=== PATIENT | female | born 1955 | race Caucasian/White ===

== ENCOUNTER 2017-09-04 16:01 | Emergency (ER) | payer OTHER ==
[~2017-09-04 16:01] MED LIST: AMLO5TAB96 PO; CYCL-36 PO
[2017-09-04] MEDS ORDERED: AMLO5TAB2 PO (16:11)
[2017-09-04 16:12] VITALS: BP 147/94; PULSE 66; RESP 18; TEMP 98.1; O2SAT 100
--- NOTE | 2017-09-04 16:28 | PD ---
HPI Chief Complaint: Chest Pain Time Seen by Provider: 16:07 Travel History International Travel<30 days: No Contact w/Intl Traveler<30days: No Traveled to known affect area: No History of Present Illness HPI 62yo F with PMH of HTN here with c/o left sided chest pain for 3 weeks. Pain is sharp, near the left shoulder and constant. No exacerbating or alleviating factor. Denies any sob, nausea, diaphoresis, vomiting, abdominal pain, focal weakness or numbness. Pt denies cig smoking. Denies any family history of sudden cardiac . PFSH Past Medical History Diminished Hearing: No Hypertension: Yes Immunizations Current: Yes Influenza Vaccination: No ?: Not Past Surgical History Section: Yes (X 2) Gynecologic Surgery: Yes (ENDOMETRIAL ABLATION) Social History Alcohol Use: Yes (DAILY) Tobacco Use: No Substance Use: No Allergies-Medications (Allergen,Severity, Reaction): Coded Allergies: amoxicillin (Verified Allergy, Severe, NAUSEA, 09/04/17) albuterol (Verified Allergy, Intermediate, Lethargy, 09/04/17) pt complains of lethergy and nausea Reported Meds & Prescriptions Reported Meds & Active Scripts Active Reported Amlodipine (Amlodipine Besylate) 5 Mg Tab 5 Mg PO HS Review of Systems Except as stated in HPI: all other systems reviewed are Neg Physical Exam Narrative GENERAL: 62yo F not in distress. SKIN: Focused skin assessment warm/dry. HEAD: Atraumatic. Normocephalic. EYES: Pupils equal and round. No scleral icterus. No injection or drainage. ENT: No nasal bleeding or discharge. Mucous membranes pink and moist. NECK: Trachea midline. No JVD. CARDIOVASCULAR: Regular rate and rhythm. No murmur appreciated. RESPIRATORY: No accessory muscle use. Clear to auscultation. Breath sounds equal bilaterally. GASTROINTESTINAL: Abdomen soft, non-tender, nondistended. MUSCULOSKELETAL: No obvious deformities. No clubbing. No cyanosis. No edema. NEUROLOGICAL: Awake and alert. No obvious cranial nerve deficits. Motor grossly within normal limits. Normal speech. PSYCHIATRIC: Appropriate mood and affect; insight and judgment normal. Data Data Last Documented VS Vital Signs Date Time Temp Pulse Resp B/P (MAP) Pulse Ox O2 Delivery O2 Flow Rate FiO2 09/04/17 16:12 98.1 66 18 147/94 (111) 100 Orders Orders Basic Metabolic Panel (Bmp) (6/12/18 16:15) Complete Blood Count With Diff (09/04/17 16:15) Magnesium (Mg) (09/04/17 16:15) Prothrombin Time / Inr (Pt) (09/04/17 16:15) Act Partial Throm Time (Ptt) (09/04/17 16:15) Troponin I (09/04/17 16:15) Chest, Single Ap (09/04/17 16:15) Ibuprofen (Motrin) (09/04/17 16:30) D-Dimer (09/04/17 16:23) Labs Laboratory Tests Test 09/04/17 16:23 White Blood Count 6.0 TH/MM3 Red Blood Count 4.48 MIL/MM3 Hemoglobin 13.6 GM/DL Hematocrit 40.9 % Mean Corpuscular Volume 91.3 FL Mean Corpuscular Hemoglobin 30.3 PG Mean Corpuscular Hemoglobin Concent 33.2 % Red Cell Distribution Width 12.7 % Platelet Count 294 TH/MM3 Mean Platelet Volume 7.4 FL Neutrophils (%) (Auto) 52.0 % Lymphocytes (%) (Auto) 34.9 % Monocytes (%) (Auto) 8.6 % Eosinophils (%) (Auto) 3.8 % Basophils (%) (Auto) 0.7 % Neutrophils # (Auto) 3.2 TH/MM3 Lymphocytes # (Auto) 2.1 TH/MM3 Monocytes # (Auto) 0.5 TH/MM3 Eosinophils # (Auto) 0.2 TH/MM3 Basophils # (Auto) 0.0 TH/MM3 CBC Comment DIFF FINAL Differential Comment Prothrombin Time 10.1 SEC Prothromb Time International Ratio 1.0 RATIO Activated Partial Thromboplast Time 28.3 SEC D-Dimer Quantitative (PE/DVT) 0.23 MG/L FEU Blood Urea Nitrogen 19 MG/DL Creatinine 0.93 MG/DL Random Glucose 84 MG/DL Calcium Level 8.7 MG/DL Magnesium Level 2.3 MG/DL Sodium Level 138 MEQ/L Potassium Level 3.6 MEQ/L Chloride Level 105 MEQ/L Carbon Dioxide Level 24.7 MEQ/L Anion Gap 8 MEQ/L Estimat Glomerular Filtration Rate 61 ML/MIN Troponin I LESS THAN 0.02 NG/ML MDM Medical Decision Making Medical Screen Exam Complete: Yes Emergency Medical Condition: Yes Interpretation(s) EKG: NSR 65bpm. Normal axis. No ST segment elevation or depression. Differential Diagnosis Atypical chest pain vs. musculoskeletal pain vs. PE (low risk) Narrative Course 62yo F with atypical chest pain for 3 weeks. Pt has low risk for PE but cannot rule out with PERC rule because she is over 50 years old so will obtain D- dimer. Labs reviewed, no leukocytosis. H/H normal. Troponin negative. D- dimer negative. CXR negative. Pt given ibuprofen for pain. Chest pain does not sound cardiac. Pt reevaluated at bedside and said feels a little better but still feel it. I offered observation in chest pain center since she has never had this but pt wants to follow up with primary care physician instead. Return precautions given. Diagnosis Primary Impression: Atypical chest pain Patient Instructions: General Instructions Departure Forms: Tests/Procedures Additional Instructions: Please follow up with your primary care physician and return to the ED if symptoms worsen. Med/Other Pt SpecificInfo: Prescription(s) given Scripts Ibuprofen (Ibuprofen) 400 Mg Tab 400 MG PO Q8H Y for PAIN SCALE 1 TO 4, #20 TAB 0 Refills Prov: Pat Akhtar DO 09/04/17 Disposition: 01 DISCHARGE HOME Condition: Stable Pat Akhtar DO Sep 04, 2017 16:28
[2017-09-04] MEDS ORDERED: IBUPROFEN 600 MG TAB PO ONE (16:30)
[2017-09-04 16:36] LABS: AUTOMATED NEUTROPHIL # 3.2 TH/MM3 (1.8-7.7); BASOPHIL % 0.7 % (0.0-2.0); EOSINOPHIL # 0.2 TH/MM3 (0-0.4); EOSINOPHIL % 3.8 % (0.0-4.0); HEMATOCRIT 40.9 % (35.0-46.0); HEMOGLOBIN 13.6 GM/DL (11.6-15.3); LYMPH % 34.9 % (9.0-44.0); LYMPHOCYTE # 2.1 TH/MM3 (1.0-4.8); MEAN CELL VOLUME 91.3 FL (80.0-100.0); MEAN CORPUSCULAR HEMOGLOBIN 30.3 PG (27.0-34.0); MEAN CORPUSCULAR HGB CONC 33.2 % (32.0-36.0); MEAN PLATELET VOLUME 7.4 FL (7.0-11.0); MONO % 8.6 % (0.0-8.0); MONOCYTE # 0.5 TH/MM3 (0-0.9); PLATELET COUNT 294 TH/MM3 (150-450); RED BLOOD COUNT 4.48 MIL/MM3 (4.00-5.30); RED CELL DISTRIBUTION WIDTH 12.7 % (11.6-17.2)
[2017-09-04 16:44] LABS: CHLORIDE 105 MEQ/L (98-107); SODIUM (NA) 138 MEQ/L (136-145)
[2017-09-04 16:46] LABS: CALCIUM 8.7 MG/DL (8.5-10.1)
[2017-09-04 16:47] LABS: BICARBONATE 24.7 MEQ/L (21.0-32.0); BLOOD UREA NITROGEN 19 MG/DL (7-18); GLUCOSE,RANDOM 84 MG/DL (74-106); MAGNESIUM 2.3 MG/DL (1.5-2.5)
[2017-09-04 16:50] LABS: CREATININE 0.93 MG/DL (0.50-1.00); D-DIMER 0.23 MG/L FEU (0.00-0.50); GLOMERULAR FILTRATION RATE 61 ML/MIN (>89); PROTHROMBIN TIME - PATIENT 10.1 SEC (9.8-11.6)
--- NOTE | 2017-09-04 16:50 | RADRPT ---
EXAM DATE: 09/04/2017 4:47 PM EDT AGE/SEX: 62 years / Female INDICATIONS: Patient complains of right sided chest pain. CLINICAL DATA: This is the patient's initial encounter. Patient reports that signs and symptoms have been present for 3 weeks and indicates a pain score of 7/10. MEDICAL/SURGICAL HISTORY: None. None. COMPARISON: No prior exams available for comparison. FINDINGS: A single AP view of the chest demonstrates the lungs to be symmetrically aerated without evidence of mass, infiltrate or effusion. The cardiomediastinal contours are unremarkable. Osseous structures a re intact. CONCLUSION: Negative examination. Electronically signed by: Amilcar Maurice MD 09/04/2017 4:48 PM EDT
[2017-09-04 16:55] LABS: TROPONIN I LESS THAN 0.02 NG/ML (0.02-0.05)
[2017-09-04] MEDS ORDERED: IBUP1TAB5 PO (17:17)
--- NOTE | 2017-09-05 09:28 | EKG ---
Date Performed: 09/04/2017 Time Performed: 16:11:12 PTAGE: 62 years EKG: Sinus rhythm LOW QRS VOLTAGE IN PRECORDIAL LEADS BORDERLINE ECG NO PREVIOUS TRACING DOCTOR: Slava Gabriel Interpretating Date/Time 09/05/2017 09:27:17
== END 2017-09-04 17:35 | disposition home or self-care (01) ==
LOC: PHED 16:01
DX: R07.89 Other chest pain (principal); R94.31 Abnormal electrocardiogram [ECG] [EKG]; I10 Essential (primary) hypertension
CPT/HCPCS: 71045; 80048; 83735; 84484; 85025; 85379; 85610; 85730; 93005; 99285